=== PATIENT | male | born 1955 | race Caucasian/White ===

== ENCOUNTER 2017-01-05 19:29 | Inpatient (IN) | payer MEDICAID, OTHER ==
[2017-01-05 20:56] VITALS: BP 196/100; PULSE 102; RESP 17; TEMP 98.4
[2017-01-05] MEDS ORDERED: cloNIDine HCL 0.1 MG TAB PO ONE (21:00)
[2017-01-05] MEDS ORDERED: cloNIDine HCL 0.2 MG TAB PO ONE (21:00)
[2017-01-05] MEDS ORDERED: traZODone HCL 50 MG TAB PO SCH (21:00)
[2017-01-05] MEDS ORDERED: GABAPENTIN 300 MG CAP PO ONE (21:15)
[2017-01-06 06:31] VITALS: BP_SYST 150; BP_SYST 198; BP_DIAS 111; BP_DIAS 85; PULSE 131; PULSE 76; RESP 20; RESP 24; TEMP 98.2; O2SAT 95
[2017-01-06] MEDS ORDERED: cloNIDine HCL 0.2 MG TAB PO ONE ×2 (07:00→13:00)
[2017-01-06] MEDS ORDERED: GABAPENTIN 300 MG CAP PO ONE (09:00)
[2017-01-06] MEDS ORDERED: LORazepam 0.5 MG TAB PO PRN (11:15)
[2017-01-06] MEDS ORDERED: NICOTINE 21 MG/24 HR PATCH T-DERMAL SCH (11:15)
[2017-01-06] MEDS ORDERED: LORazepam 2 MG/ML VIAL IM PRN ×2 (11:15)
[2017-01-06] MEDS ORDERED: MAGNESIUM HYDROXIDE SUSP 30 ML CUP PO PRN (11:15)
[2017-01-06] MEDS ORDERED: ACETAMINOPHEN 325 MG TAB PO PRN (11:15)
[2017-01-06] MEDS ORDERED: ALUMINUM/MAGNESIUM/SIMETH 30 ML CUP PO PRN (11:15)
[2017-01-06] MEDS ORDERED: LORazepam 1 MG TAB PO PRN (11:15)
--- NOTE | 2017-01-06 11:27 | HHI.HP ---
Provisional Diagnosis Admission Date January 05, 2017 at 19:29 [place] I. Adjustment disorder with depressed mood, opiate dependence [place] II. Deferred [place] III. Chronic lower back pain, hypertension [place] IV. Poor family and social support [place] V. 50 Certification of Person's Competence To Provide Express and Informed Consent I have personally examined Matthew Fox , a person being served at [facility] on, January 06, 2017 11:10. Express and informed consent means consent voluntarily given in writing, by a competent person, after sufficient explanation and disclosure of the subject matter involved to enable the person to make a knowing and willful decision without any element of force, fraud, deceit, duress, or other form of constraint or coercion. This person is 18 years of age or older, is not now known to be incompetent to consent to treatment with a guardian advocate, and does not have a health care surrogate or proxy currently making medical treatment decisions. I have found this person to be one of the following: [X] Competent to provide express and informed consent, as defined above, for voluntary admission to this facility and is competent to provide express and informed consent for treatment. He/she has the consistent capacity to make well reasoned, willful, and knowing decisions concerning his or her medical or mental health treatment. The person fully and consistently understands the purpose of the admission for examination/placement and is fully capable of personally exercising all rights assured under [place] Incompetent to provide express and informed consent to voluntary admission, and this is incompetent to provide express and informed consent to treatment. The person must be transferred to involuntary status and a petition for a guardian advocate filed with the Circuit Court. [] Refusing to provide express and informed consent to voluntary admission but is competent to provide express and informed consent for treatment. The person must be discharged or transferred to involuntary status. Form shall be completed within 24 hours of a person's arrival at the receiving facility and filed in the clinical record of each person: 1. Admitted on a voluntary basis 2. Permitted to provide express and informed consent to his/her own treatment 3. Allowed to transfer from involuntary to voluntary status 4. Prior to permitting a person to consent to his or her own treatment after having been previously found incompetent to consent to treatment. History of Present Illness Capacity: Has Capacity HPI The patient is a 61-year-old man, homeless, single, supported by [facility], without any previous psychiatric history, no previous psychiatric hospitalizations, no previous suicidal attempts, medical history hypertension, and chronic lower back pain, who was transferred from [facility] under [place] act due to suicidal attempt by overdosing. Apparently patient was found unresponsive in his house after an overdose with opiates and Lyrica. On psychiatric evaluation today patient is calm, cooperative irritable. He says that he did not try to commit suicide. He states that yesterday after an argument with his landlord he became very upset and aggravated, went inside his room and took his usual medication for pain, but minutes later he is started to feel dizzy and he called the ambulance. When EMS nuclear engineering technician asked him if he took any medication he stated he to live And opiates "they might understood that I overdose, but I never did that, I love myself, I want to ". Patient says that he has been struggling with sadness due to his social/financial situation. However, he denies depressive symptoms, he denies anhedonia, he denies suicidal or homicidal ideation, he denies visual and auditory hallucinations. No paranoia, no delusions, no agitation, no aggressive behavior present. Patient is oriented 3. No confusion, no gross cognitive impairment observed. During the interview patient is mostly focused and medical problems, especially in medication for lower back pain. He is also very concerned about his uncontrolled blood pressure. He was reassured and explained that medical team was seen son to help in this aspect. Review of Systems Endocrine: DENIES: Heat/cold intolerance, Polydipsia, Polyuria, Polyphagia Eyes: DENIES: Blurred vision, Diplopia, Eye inflammation, Eye pain, Vision loss , Photosensitivity, Double Vision Ears, nose, mouth, throat: DENIES: Tinnitus, Hearing loss, Vertigo, Nasal discharge, Oral lesions, Throat pain, Hoarseness, Ear Pain, Running Nose, Epistaxis, Sinus Pain, Toothache, Odynophagia Respiratory: DENIES: Apneas, Cough, Snoring, Wheezing, Hemoptysis, Sputum production, Shortness of breath Cardiovascular: DENIES: Chest pain, Palpitations, Syncope, Dyspnea on Exertion , PND, Lower Extremity Edema, Orthopnea, Claudication Gastrointestinal: DENIES: Abdominal pain, Black stools, Bloody stools, Constipation, Diarrhea, Nausea, Vomiting, Difficulty Swallowing, Anorexia Genitourinary: DENIES: Sexual dysfunction, Urinary frequency, Urinary incontinence, Urgency, Hematuria, Dysuria, Nocturia, Penile Discharge, Testicular Pain, Testicular Swelling Musculoskeletal: COMPLAINS OF: Back pain Integumentary: DENIES: Abnormal pigmentation, Nail changes, Pruritus, Rash Hematologic/lymphatic: DENIES: Bruising, Lymphadenopathy Immunologic/allergic: DENIES: Eczema, Urticaria Psychiatric: DENIES: Anxiety, Confusion, Mood changes, Depression, Hallucinations, Agitation, Suicidal Ideation, Homicidal Ideation, Delusions Substance Abuse History Drugs/Alcohol past 12 months Patient denies the use of alcohol and illicit drugs. He reports full compliance with medication for pain OxyContin and Lyrica. Past Family Social History Coded Allergies: Nonsteroidal Anti-Inflammatory Agts (Verified Allergy, Unknown, 01/05/17) Toradol (Verified Allergy, Unknown, 01/05/17) Current Medications Medications (Trade) Dose Ordered Sig/Ivan Route Start Time Stop Time Status Last Admin (Desyrel) 150 mg HS PO 01/05/17 21:00 01/05/17 21:00 (Ativan) 1 mg Q6H PRN PO 01/06/17 11:15 UNV (Ativan Inj) 1 mg Q6H PRN IM 01/06/17 11:15 UNV (Ativan) 0.5 mg Q12H PRN PO 01/06/17 11:15 UNV (Ativan Inj) 0.5 mg Q12H PRN IM 01/06/17 11:15 UNV (Tylenol) 650 mg Q4H PRN PO 01/06/17 11:15 UNV (Milk Of Magnesia Liq) 30 ml DAILY PRN PO 01/06/17 11:15 UNV (Mag-Al Plus Susp Liq) 30 ml Q6H PRN PO 01/06/17 11:15 UNV (Habitrol 21 Mg Patch.24 Hr) 1 patch DAILY T-DERMAL 01/06/17 11:15 UNV Family History Patient denies family psychiatric history Social History Patient was born and raised in [place], he is homeless, he used to live in [place], his divorce, no kids, he support from [facility], his highest level of education is 12th grade Patient's Strengths (min. 2) Verbal communication Physical Exam On physical exam no EPS, no tremors, no withdrawal symptoms, no stiffness, no psychomotor retardation or agitation present Vital Signs Vital Signs Date Time Temp Pulse Resp B/P Pulse Ox O2 Delivery O2 Flow Rate FiO2 01/06/17 06:31 98.2 76 20 198/111 95 I/O 01/05/17 01/05/17 01/06/17 08:00 16:00 00:00 Intake Total 360 ml Balance 360 ml Lab Results Wbc, CMP, toxicology, ordered Mental Status Examination Appearance man, long hair, good hygiene, [facility], he is calm, cooperative, irritable at times Speech: Unremarkable Orientation: x3 Memory: Unremarkable Thought Process: Logical Thought Content: Unremarkable Hallucination Type: None Suicidal Ideation: No Previous Suicide Attempts: No Homicidal Ideation: No Previous Homicide Attempts: No Affect: Good Mood: Appropriate Motor Activity: Normal gait Assessment & Plan Problem List: (1) Adjustment disorder with depressed mood Assessment & Plan: The patient is a 61-year-old man, homeless, single , supported by [facility], without any previous psychiatric history, no previous psychiatric hospitalizations, no previous suicidal attempts, medical history hypertension, and chronic lower back pain, who was transferred from [facility] under [place] act due to suicidal attempt by overdosing. Apparently patient was found unresponsive in his house after an overdose with opiates and Lyrica. On psychiatric evaluation today patient denies suicidal intention in his recent overdose, he denies significant depressive symptoms, denies anxiety, denies perceptual disturbances, denies current suicidal and homicidal ideation, visual and auditory hallucinations. Patient seems to be future oriented, focused in his social situation, hopelessness, medical problems, especially lower back pain. Patient will be On psychiatric under observation of mood and behavior, and until collateral information is available and also a safe discharge could be coordinated. Will consult hospitalist for elevated blood pressure. Bp is . Will medicate with clonidine 0.2 mg stat to control be be. We ordered trazodone 200 mg to help with sleep at night and gabapentin 300 mg 3 times a day for pain. workers compensation claims supervisor intervention for psychosocial assessment, collateral information, to coordinate a safe discharge. Safety measure will be taken. Patient will participate in individual and group therapies. Patient will sign voluntary admission. I anticipate of the patient will be in the unit 24-48 hours. Extensive psycho education, support and motivation provided. ICD Code: F43.21 Assessment & Plan Estimated LOS: days Jovan Lehman MD January 06, 2017 11:27
[2017-01-06] MEDS ORDERED: oxyCODONE/ACETAMINOPHEN 10 MG/325 MG TAB PO PRN (12:45)
[2017-01-06] MEDS ORDERED: amLODIPine BESYLATE 5 MG TAB PO ONE (13:00)
[2017-01-06] MEDS ORDERED: LOSARTAN 50 MG TAB PO ONE (13:00)
[2017-01-06] MEDS ORDERED: GABAPENTIN 300 MG CAP PO SCH (13:00)
[2017-01-06 13:34] LABS: BLOOD, URINE NEG (NEG); GLUCOSE,URINE NEG (NEG); KETONE, URINE NEG (NEG); NITRITE,URINE NEG (NEG); PH, URINE 6.5 (5.0-8.5); SQUAMOUS EPITHELIAL CELL URINE <1 /hpf (0-5); URINE COLOR LIGHT-YELLOW (YELLW/STRAW)
[2017-01-06 13:39] LABS: COMMENT (UR) CULT NOT INDICATED; CULTURE IF INDICATED CULT NOT INDICATED
--- NOTE | 2017-01-06 14:20 | PD.CONS ---
HPI Service [facility] Hospitalists Consult Requested By Psychiatric service Reason for Consult Hypertensive management Primary Care Physician Unknown Diagnoses: History of Present Illness This is a 61-year-old male with past medical history of hypertension and chronic neck and back pain on Percocet who was admitted to the psychiatric unit as a transfer from [facility] under [place] act due to suicide attempt by overdosing. His blood pressure is currently 213/104 and hospitalist services have been consulted for medical management. Patient reports that yesterday after having an argument with his landlord he became very upset and aggravated in a short time later and dizziness, shaking and weakness. Patient reports he woke up a short while later and was unable to remember how to use his cell phone. He then began taking [id number] doses of Lyrica due to the fact that he forgot that he already taken the previous dose. He denies any suicide attempt. Patient is complaining of severe neck and back pain at this time. He also reports dysuria. He also reports episodes of diarrhea occurring after every meal that began when he was hospitalized over at [facility] and from his historical account it sounds as if he was tested for C. difficile and was found negative. He denies any fever, chills, nausea or vomiting. He normally takes clonidine 3 times a day but has not had a dose of that medication since he was admitted to this hospital. Review of Systems Except as stated in HPI: all other systems reviewed are Neg Past Family Social History Allergies: Coded Allergies: Nonsteroidal Anti-Inflammatory Agts (Verified Allergy, Unknown, 01/05/17) Toradol (Verified Allergy, Unknown, 01/05/17) Past Medical History Hypertension Left foot fracture 2014 Right ankle fracture 2013 Chronic neck and back pain Past Surgical History Patient denies any previous surgeries Reported Medications Gabapentin Losartan Percocet Clonidine Norvasc Active Ordered Medications Current Medications Medications (Trade) Dose Ordered Sig/Ivan Route Start Time Stop Time Status Last Admin (Ativan) 1 mg Q6H PRN PO 01/06/17 11:15 (Ativan Inj) 1 mg Q6H PRN IM 01/06/17 11:15 (Ativan) 0.5 mg Q12H PRN PO 01/06/17 11:15 (Ativan Inj) 0.5 mg Q12H PRN IM 01/06/17 11:15 (Tylenol) 650 mg Q4H PRN PO 01/06/17 11:15 (Milk Of Magnesia Liq) 30 ml DAILY PRN PO 01/06/17 11:15 (Mag-Al Plus Susp Liq) 30 ml Q6H PRN PO 01/06/17 11:15 (Habitrol 21 Mg Patch.24 Hr) 1 patch DAILY T-DERMAL 01/06/17 11:15 (Neurontin) 300 mg TID PO 01/06/17 13:00 01/06/17 12:46 (Catapres) 0.1 mg Q6HR PRN PO 01/06/17 18:00 (Norvasc) 5 mg DAILY PO 01/07/17 09:00 (Cozaar) 100 mg DAILY PO 01/07/17 09:00 (Percocet 10-325 Mg) 1 tab Q6H PRN PO 01/06/17 12:45 01/08/17 12:44 (Desyrel) 200 mg HS PO 01/06/17 21:00 Family History Mother, , lupus Father, age 72, suicide Social History Patient admits to tobacco use of a half pack per day. He denies any alcohol consumption or illicit drug use. He is with no kids. He is supported by [facility]. Physical Exam Vital Signs Vital Signs Date Time Temp Pulse Resp B/P Pulse Ox O2 Delivery O2 Flow Rate FiO2 01/06/17 06:31 98.2 76 20 198/111 95 01/05/17 20:56 98.4 102 17 196/100 Physical Exam GENERAL: This is a well-nourished, well-developed patient, in no apparent distress. Awake and alert. SKIN: No rashes, ecchymoses or lesions. Cool and dry. HEAD: Atraumatic. Normocephalic. EYES: Pupils equal round and reactive. Extraocular motions intact. No scleral icterus. No injection or drainage. ENT: Nose without bleeding, purulent drainage or septal hematoma. NECK: Trachea midline. No lymphadenopathy. Supple, nontender, no meningeal signs. CARDIOVASCULAR: Regular rate and rhythm without murmurs, gallops, or rubs. RESPIRATORY: Clear to auscultation. Breath sounds equal bilaterally. No wheezes , rales, or rhonchi. GASTROINTESTINAL: Abdomen soft, non-tender, nondistended. No hepato-splenomegaly , or palpable masses. No guarding. MUSCULOSKELETAL: Extremities without clubbing, cyanosis, or edema. No joint tenderness, effusion, or edema noted. No calf tenderness. NEUROLOGICAL: Awake and alert. Able to move all extremities. Motor and sensory grossly within normal limits. Five out of 5 muscle strength in all muscle groups. Normal speech. Laboratory Laboratory Tests Test 01/06/17 13:00 Urine Color LIGHT-YELLOW Urine Turbidity CLEAR Urine pH 6.5 Urine Specific [place] 1.008 Urine Protein NEG Urine Glucose (UA) NEG Urine Ketones NEG Urine Occult Blood NEG Urine Nitrite NEG Urine Bilirubin NEG Urine Urobilinogen LESS THAN 2.0 Urine Leukocyte Esterase NEG Urine WBC LESS THAN 1 Urine Squamous Epithelial <1 Cells Microscopic Urinalysis Comment CULT NOT INDICATED Assessment and Plan Assessment and Plan 61-year-old male with past medical history of hypertension and chronic neck and back pain on Percocet who was admitted to the psychiatric unit as a transfer from [facility] under [place] act due to suicide attempt by overdosing. His blood pressure is currently 213/104 and hospitalist services have been consulted for medical management. //Suicide attempt - Management per psychiatric team //Hypertensive urgency - Clonidine 0.2 mg now - Clonidine 0.1 mg every 6 hours when necessary with parameters - Resume home Norvasc and losartan - Monitor BP //Dysuria - Obtain urinalysis with reflex //Diarrhea - Possibly due to opiate withdrawal - C. difficile studies ordered - Encourage fluid intake - Monitor //Chronic neck and back pain - Percocet 10/325mg one by mouth every 6 when necessary pain 48 hours //DVT prophylaxis - Encourage ambulation Written by Sonali Tony PA-C acting as scribe for Dr. Chamorro on 01/06/17 at 14 :11. This note was transcribed by scribe Sonali Tony PA-C. I, Dr. Baldomero Chamorro personally performed the history, physical exam, and medical decision making; and confirmed the accuracy of the information in the transcribed note. Authenticated by Dr. Baldomero Chamorro on 01/06/17 at 19:56. Discussed Condition With Dr. Lehman, patient and nursing staff Sonali Tony January 06, 2017 14:20 Mo Chamorro DO January 06, 2017 19:56
[2017-01-06] MEDS ORDERED: cloNIDine HCL 0.1 MG TAB PO PRN (18:00)
[2017-01-06] MEDS ORDERED: traZODone HCL 100 MG TAB PO SCH ×2 (21:00)
[2017-01-07] MEDS ORDERED: LOSARTAN 50 MG TAB PO SCH (09:00)
[2017-01-07] MEDS ORDERED: amLODIPine BESYLATE 5 MG TAB PO SCH (09:00)
== END 2017-01-06 17:34 | disposition still patient (30) | DRG 881 ==
LOC: H4EA 19:29
PROVIDERS: ADMIT Psychiatry & Neurology Psychiatry; ATTEND Psychiatry & Neurology Psychiatry
DX: F43.21 Adjustment disorder with depressed mood (principal); F11.20 Opioid dependence, uncomplicated; I10 Essential (primary) hypertension; G89.29 Other chronic pain; M54.5 Low back pain; Z59.0 Homelessness; Z91.5 Personal history of self-harm; F17.210 Nicotine dependence, cigarettes, uncomplicated; I16.0 Hypertensive urgency; R19.7 Diarrhea, unspecified
CPT/HCPCS: 81001

== ENCOUNTER 2017-01-06 16:19 | Observation (INO) | payer MEDICAID, OTHER ==
[~2017-01-06] VITALS: Ht 182.9 cm; Wt 83.6 kg
[2017-01-06 18:15] VITALS: BP 184/108; PULSE 81; RESP 22; TEMP 98.6; O2SAT 96
--- NOTE | 2017-01-06 18:18 | HHI.HP ---
[facility] Admission Diagnosis Accelerated hypertension Diagnoses: Chief Complaint: Accelerated hypertension Neck and back pain Dysuria Travel History International Travel<30 Days: No Contact w/Intl Traveler <30 Da: No Traveled to Known Affected Are: No History of Present Illness his is a 61-year-old male with past medical history of hypertension and chronic neck and back pain on Percocet who was admitted to the psychiatric unit as a transfer from [facility] under [place] act due to suicide attempt by overdosing. Patient was seen as a consultation for extremely elevated blood pressure of 213/104 while under the psychiatric service. Patient was subsequently discharged from psychiatric service and will now be admitted under hospitalist service for observation of accelerated hypertension. Patient reports that yesterday after having an argument with his landlord he became very upset and aggravated in a short time later and dizziness, shaking and weakness. Patient reports he woke up a short while later and was unable to remember how to use his cell phone. He then began taking [id number] doses of Lyrica due to the fact that he forgot that he already taken the previous dose. He denies any suicide attempt. Patient is complaining of severe neck and back pain at this time. He also reports dysuria. He also reports episodes of diarrhea occurring after every meal that began when he was hospitalized over at [facility] and from his historical account it sounds as if he was tested for C. difficile and was found negative. He denies any fever, chills, nausea or vomiting. He normally takes clonidine 3 times a day but has not had a dose of that medication since he was admitted to this hospital. Review of Systems Except as stated in HPI: all other systems reviewed are Neg Past Family Social History Past Medical History Hypertension Left foot fracture 2014 Right ankle fracture 2013 Chronic neck and back pain Past Surgical History Patient denies any previous surgeries Reported Medications Gabapentin Losartan Percocet Clonidine Norvasc Allergies: Coded Allergies: Nonsteroidal Anti-Inflammatory Agts (Verified Allergy, Unknown, 01/05/17) Toradol (Verified Allergy, Unknown, 01/05/17) Family History Mother, , lupus Father, age 72, suicide Social History Patient admits to tobacco use of a half pack per day. He denies any alcohol consumption or illicit drug use. He is with no kids. He is supported by [facility]. Physical Exam Physical Exam GENERAL: This is a well-nourished, well-developed patient, in no apparent distress. Awake and alert. SKIN: No rashes, ecchymoses or lesions. Cool and dry. HEAD: Atraumatic. Normocephalic. No temporal or scalp tenderness. EYES: Pupils equal round and reactive. Extraocular motions intact. No scleral icterus. No injection or drainage. ENT: Nose without bleeding, purulent drainage or septal hematoma. Throat without erythema, tonsillar hypertrophy or exudate. Uvula midline. Airway patent. NECK: Trachea midline. No JVD or lymphadenopathy. Supple, nontender, no meningeal signs. CARDIOVASCULAR: Regular rate and rhythm without murmurs, gallops, or rubs. RESPIRATORY: Clear to auscultation. Breath sounds equal bilaterally. No wheezes , rales, or rhonchi. GASTROINTESTINAL: Abdomen soft, non-tender, nondistended. No hepato-splenomegaly , or palpable masses. No guarding. MUSCULOSKELETAL: Extremities without clubbing, cyanosis, or edema. No joint tenderness, effusion, or edema noted. No calf tenderness. NEUROLOGICAL: Awake and alert. Able to move all extremities. Motor and sensory grossly within normal limits. Normal speech. Assessment and Plan Assessment and Plan 61-year-old male with past medical history of hypertension and chronic neck and back pain on Percocet who was admitted to the psychiatric unit as a transfer from [facility] under [place] act due to suicide attempt by overdosing. Patient was subsequently discharged from psychiatric service and will be admitted under hospitalist service for observation of accelerated hypertension. //Accelerated hypertension - Clonidine 0.1 mg every 6 hours when necessary with parameters - Resume home Norvasc, Clonidine and losartan - Monitor BP //Dysuria - UA unremarkable - Monitor //Diarrhea - Possibly due to opiate withdrawal - C. difficile studies ordered - Encourage fluid intake - Monitor //Chronic neck and back pain - Percocet 10/325mg one by mouth every 6 when necessary pain 48 hours //DVT prophylaxis - Encourage ambulation - SCD/JOHNY hose Written by Sonali Tony PA-C acting as scribe for Dr. Chamorro on 01/06/17 at 18 :17. This note was transcribed by mag Tony PA-C. I, Dr. Baldomero Chamorro personally performed the history, physical exam, and medical decision making; and confirmed the accuracy of the information in the transcribed note. Authenticated by Dr. Baldomero Chamorro on 01/08/17 at 00:07. Sonali Tony January 06, 2017 18:18 Mo Chamorro DO January 08, 2017 00:08
[2017-01-06] MEDS ORDERED: hydrALAZINE HCL 25 MG TAB PO ONE (19:00)
[2017-01-06] MEDS ORDERED: SODIUM CHLORIDE 0.9% FLUSH 10 ML FLUSH IV FLUSH PRN (19:45)
[2017-01-06] MEDS ORDERED: ACETAMINOPHEN 325 MG TAB PO PRN (19:45)
[2017-01-06] MEDS ORDERED: ONDANSETRON HCL 4 MG/2 ML VIAL IVP PRN (19:45)
[2017-01-06] MEDS ORDERED: NALOXONE HCL 0.4 MG/ML AMP IV PRN (19:45)
[2017-01-06] MEDS ORDERED: MAGNESIUM HYDROXIDE SUSP 30 ML CUP PO PRN (19:45)
[2017-01-06] MEDS: SODIUM CHLORIDE 0.9% FLUSH 10 ML FLUSH IV FLUSH SCH (21:00)
[2017-01-06 21:34] VITALS: BP 188/102; PULSE 80
[2017-01-06] MEDS: oxyCODONE/ACETAMINOPHEN 7.5 MG/325 MG TAB PO PRN (21:42)
[2017-01-06] MEDS ORDERED: cloNIDine HCL 0.1 MG TAB PO SCH (22:00)
[2017-01-06 22:52] VITALS: BP 168/100; PULSE 73
[2017-01-07] VITALS (11 sets, daily range): BP systolic 142–207; BP diastolic 64–110; PULSE 64–85; RESP 16–18; TEMP 97.3–98.9; O2SAT 87–96
[2017-01-07] MEDS ORDERED: traZODone HCL 50 MG TAB PO ONE (00:15)
[2017-01-07] MEDS ORDERED: cloNIDine HCL 0.1 MG TAB PO ONE (00:30)
[2017-01-07] MEDS: oxyCODONE/ACETAMINOPHEN 7.5 MG/325 MG TAB PO PRN ×4 (03:52→23:53)
[2017-01-07] MEDS: cloNIDine HCL 0.2 MG TAB PO SCH ×3 (05:56→20:36)
[2017-01-07] MEDS: LOSARTAN 50 MG TAB PO SCH (08:16)
[2017-01-07 08:53] LABS: AUTOMATED NEUTROPHIL # 7.7 TH/MM3 (1.8-7.7); BASOPHIL # 0.1 TH/MM3 (0-0.2); BASOPHIL % 0.8 % (0.0-2.0); EOSINOPHIL # 0.4 TH/MM3 (0-0.4); EOSINOPHIL % 3.3 % (0.0-4.0); HEMATOCRIT 39.5 % (39.0-51.0); HEMO FLAGS DIFF FINAL; LYMPH % 14.7 % (9.0-44.0); LYMPHOCYTE # 1.6 TH/MM3 (1.0-4.8); MEAN CELL VOLUME 88.5 FL (80.0-100.0); MEAN CORPUSCULAR HEMOGLOBIN 30.6 PG (27.0-34.0); MEAN CORPUSCULAR HGB CONC 34.6 % (32.0-36.0); MONO % 10.2 % (0.0-8.0); PLATELET COUNT 361 TH/MM3 (150-450); RED BLOOD COUNT 4.47 MIL/MM3 (4.50-5.90); RED CELL DISTRIBUTION WIDTH 14.3 % (11.6-17.2); WHITE BLOOD COUNT 10.9 TH/MM3 (4.0-11.0)
[2017-01-07] MEDS ORDERED: amLODIPine BESYLATE 5 MG TAB PO SCH (09:00)
[2017-01-07 09:15] LABS: BICARBONATE 31.9 MEQ/L (21.0-32.0); POTASSIUM 3.4 MEQ/L (3.5-5.1)
[2017-01-07] MEDS ORDERED: PNEUMOCOCCAL POLYVALENT INJ 25 MCG/0.5 ML SYR IM ONE (10:00)
[2017-01-07] MEDS: SODIUM CHLORIDE 0.9% FLUSH 10 ML FLUSH IV FLUSH SCH ×2 (13:15→20:36)
--- NOTE | 2017-01-07 15:03 | HHI.PR ---
Subjective Remarks Follow-up of accelerated hypertension. Patient is doing well. Complains of some headache. He could not sleep much last night. No chest pain, fever, chills. Objective Vitals Vital Signs Date Time Temp Pulse Resp B/P Pulse Ox O2 Delivery O2 Flow Rate FiO2 01/07/17 12:00 98.1 79 18 145/87 87 01/07/17 08:56 71 01/07/17 08:00 85 01/07/17 08:00 98.3 74 18 160/96 96 Automatic Cuff 01/07/17 08:00 96 Room Air 01/07/17 04:00 98.0 68 16 171/98 95 01/07/17 02:01 170/88 01/07/17 00:55 80 182/104 01/07/17 00:40 78 01/07/17 00:00 98.6 64 16 179/90 94 01/06/17 22:52 73 168/100 01/06/17 21:34 80 188/102 01/06/17 20:00 Room Air 01/06/17 18:15 98.6 81 22 184/108 96 I/O 01/06/17 01/06/17 01/06/17 01/07/17 01/07/17 01/07/17 06:59 14:59 22:59 06:59 14:59 22:59 Intake Total 720 ml 1180 ml Output Total 200 ml Balance 520 ml 1180 ml Intake Oral 720 ml 1180 ml Output Urine Total 200 ml # Voids 2 4 # Bowel Movements 0 4 Result Diagram: 01/07/17 0743 01/07/17 0743 Objective Remarks GENERAL: AOX3, NAD. SKIN: Warm and dry. HEAD: Normocephalic. EYES: No scleral icterus. No injection or drainage. NECK: Supple, trachea midline. No JVD or lymphadenopathy. CARDIOVASCULAR: Regular rate and rhythm without murmurs, gallops, or rubs. RESPIRATORY: Breath sounds equal bilaterally. No accessory muscle use. GASTROINTESTINAL: Abdomen soft, non-tender, nondistended. MUSCULOSKELETAL: No cyanosis, or edema. BACK: Nontender without obvious deformity. No CVA tenderness. Procedures None A/P Problem List: (1) Accelerated hypertension ICD Code: I10 Status: Acute (2) Chronic back pain ICD Code: M54.9 Status: Acute (3) Adjustment disorder with depressed mood ICD Code: F43.21 Status: Acute Assessment and Plan 61-year-old male with past medical history of hypertension and chronic neck and back pain on Percocet who was admitted to the psychiatric unit as a transfer from [facility] under [place] act due to suicide attempt by overdosing. Patient was subsequently discharged from psychiatric service and will be admitted under hospitalist service for observation of accelerated hypertension. Accelerated hypertension Continue home medications amlodipine 10 mg, losartan 100 mg, metoprolol succinate 50 mg all daily. Patient takes clonidine 0.3 mg by mouth 3 times a day. We'll continue 0.2 mg clonidine by mouth 3 times a day for now. Hydralazine 10 mg IV every 4 hours when necessary Chronic back pain - continue Percocet 7.5 mg by mouth every 6 hours when necessary Insomnia - trazodone 100 mg daily at bedtime Adjustment disorder with depressed mood Patient was evaluated by psychiatry service. Patient was discharged from psychiatric service on 01/06/2017. Full code. SCDs. Discharge: Patient is homeless. Anticipate discharge on 01/10/2017. Mo Chamorro DO January 07, 2017 3:03 pm
[2017-01-07 19:22] LABS: BLOOD, URINE NEG (NEG); GLUCOSE,URINE NEG (NEG); KETONE, URINE NEG (NEG); NITRITE,URINE NEG (NEG); URINE COLOR LIGHT-YELLOW (YELLW/STRAW)
[2017-01-07 19:23] LABS: COMMENT (UR) CULT NOT INDICATED; CULTURE IF INDICATED CULT NOT INDICATED
[2017-01-07 20:29] LABS: C. DIFF EPI 027 PRESUMPTIVE NEGATIVE (NEGATIVE); C. DIFF TOXIN PCR NEGATIVE (NEGATIVE)
[2017-01-08] VITALS (9 sets, daily range): BP systolic 130–221; BP diastolic 70–107; PULSE 57–75; RESP 16–20; TEMP 97.8–98.5; O2SAT 96–98
[2017-01-08] MEDS ORDERED: METO50TA11 PO (00:34)
[2017-01-08] MEDS ORDERED: BENT20TA PO (00:35)
[2017-01-08] MEDS ORDERED: BACL20TA PO (00:35)
[2017-01-08] MEDS ORDERED: IBUP800T23 PO (00:35)
[2017-01-08] MEDS ORDERED: LOSA100T PO (00:35)
[2017-01-08] MEDS ORDERED: LYRI75CA PO (00:35)
[2017-01-08] MEDS ORDERED: MOME17I EACH NARE (00:35)
[2017-01-08] MEDS ORDERED: OXYC1TAB36 PO (00:35)
[2017-01-08] MEDS ORDERED: ZYRT10CA PO (00:35)
[2017-01-08] MEDS ORDERED: AMLO10TA2 PO (00:35)
[2017-01-08] MEDS ORDERED: CLON0.3T PO (00:35)
[2017-01-08] MEDS: oxyCODONE/ACETAMINOPHEN 7.5 MG/325 MG TAB PO PRN ×4 (05:52→23:45)
[2017-01-08] MEDS ORDERED: BACLOFEN 20 MG TAB PO SCH (06:00)
[2017-01-08] MEDS: FLUTICASONE PROPIONATE 50 MCG/ACT 16 GM NASAL SPRAY EACH NARE SCH (07:38)
[2017-01-08] MEDS: METOPROLOL SUCCINATE 50 MG EXTENDED RELEASE TAB PO SCH (07:38)
[2017-01-08] MEDS: LOSARTAN 50 MG TAB PO SCH (07:38)
[2017-01-08] MEDS: SODIUM CHLORIDE 0.9% FLUSH 10 ML FLUSH IV FLUSH SCH ×2 (07:38→21:00)
[2017-01-08] MEDS: cloNIDine HCL 0.2 MG TAB PO SCH ×3 (08:59→18:09)
[2017-01-08] MEDS ORDERED: cloNIDine HCL 0.3 MG TAB PO SCH (09:00)
--- NOTE | 2017-01-08 10:07 | HHI.PR ---
Subjective Remarks Follow-up for accelerated hypertension. Patient denies any acute concerns. He is unable to sleep well. No chest pain, shortness of breath, fever or chills. Objective Vitals Vital Signs Date Time Temp Pulse Resp B/P Pulse Ox O2 Delivery O2 Flow Rate FiO2 01/08/17 08:00 98.1 59 20 221/107 98 01/08/17 04:00 98.0 66 18 177/98 97 01/08/17 00:23 156/90 01/08/17 00:00 98.1 68 16 154/103 97 01/07/17 21:45 152/88 01/07/17 20:36 16 01/07/17 20:32 98.3 75 16 207/110 96 01/07/17 16:00 98.9 81 18 146/95 96 01/07/17 12:00 98.1 79 18 145/87 87 I/O 01/07/17 01/07/17 01/07/17 01/08/17 01/08/17 01/08/17 07:00 15:00 23:00 07:00 15:00 23:00 Intake Total 360 ml 1180 ml 0 ml 0 ml Balance 360 ml 1180 ml 0 ml 0 ml Intake Oral 360 ml 1180 ml IV Total 0 ml 0 ml # Voids 2 4 4 # Bowel Movements 0 4 1 Result Diagram: 01/07/17 0743 01/07/17 0743 Objective Remarks GENERAL: Alert, oriented 3, NAD. SKIN: Warm and dry. HEAD: Normocephalic. EYES: No scleral icterus. No injection or drainage. NECK: Supple, trachea midline. No JVD or lymphadenopathy. CARDIOVASCULAR: Regular rate and rhythm without murmurs, gallops, or rubs. RESPIRATORY: Breath sounds equal bilaterally. No accessory muscle use. GASTROINTESTINAL: Abdomen soft, non-tender, nondistended. MUSCULOSKELETAL: No cyanosis, or edema. BACK: Nontender without obvious deformity. No CVA tenderness. Procedures None A/P Assessment and Plan 61-year-old male with past medical history of hypertension and chronic neck and back pain on Percocet who was admitted to the psychiatric unit as a transfer from [facility] under [place]rera act due to suicide attempt by overdosing. Patient was subsequently discharged from psychiatric service and will be admitted under hospitalist service for observation of accelerated hypertension. Accelerated hypertension Continue home medications amlodipine 10 mg, losartan 100 mg, metoprolol succinate 50 mg all daily. Patient takes clonidine 0.3 mg by mouth 3 times a day. We'll continue 0.2 mg clonidine by mouth 3 times a day for now. If BP remains high, we will increase to Clonidine 0.3mg TID. Add Hydralazine 10 mg IV every 4 hours when necessary Chronic back pain - continue Percocet 7.5 mg by mouth every 6 hours when necessary Insomnia - trazodone 100 mg daily at bedtime Adjustment disorder with depressed mood Patient was evaluated by psychiatry service. Patient was discharged from psychiatric service on 01/06/2017. Full code. SCDs. Discharge: Patient is homeless. Anticipate discharge on 01/10/2017. Mo Chamorro DO January 08, 2017 10:07 am
[2017-01-08] MEDS ORDERED: hydrALAZINE HCL 20 MG/ML VIAL IV PUSH PRN (11:00)
[2017-01-08] MEDS ORDERED: CETIRIZINE HCL 10 MG TAB PO ONE (14:15)
[2017-01-08] MEDS: BACLOFEN 10 MG TAB PO SCH ×2 (16:29→21:17)
[2017-01-08] MEDS ORDERED: traZODone HCL 100 MG TAB PO SCH (21:00)
[2017-01-09] VITALS: BP 114/63; PULSE 59; RESP 18; TEMP 97.8; O2SAT 95
[2017-01-09 04:00] VITALS: BP 160/94; PULSE 57; RESP 18; TEMP 97.8; O2SAT 97
[2017-01-09] MEDS: BACLOFEN 10 MG TAB PO SCH ×2 (05:13→13:33)
[2017-01-09] MEDS: oxyCODONE/ACETAMINOPHEN 7.5 MG/325 MG TAB PO PRN ×2 (05:13→11:50)
[2017-01-09 08:00] VITALS: BP 140/87; PULSE 58; RESP 16; TEMP 97.7; O2SAT 97
[2017-01-09] MEDS: METOPROLOL SUCCINATE 50 MG EXTENDED RELEASE TAB PO SCH (09:00)
[2017-01-09] MEDS: SODIUM CHLORIDE 0.9% FLUSH 10 ML FLUSH IV FLUSH SCH (09:00)
[2017-01-09] MEDS ORDERED: CETIRIZINE HCL 10 MG TAB PO SCH (09:00)
[2017-01-09] MEDS: cloNIDine HCL 0.2 MG TAB PO SCH ×2 (09:16→11:50)
[2017-01-09] MEDS: FLUTICASONE PROPIONATE 50 MCG/ACT 16 GM NASAL SPRAY EACH NARE SCH (09:16)
[2017-01-09 09:33] VITALS: PULSE 55
--- NOTE | 2017-01-09 10:43 | HHI.PR ---
Objective Vitals Vital Signs Date Time Temp Pulse Resp B/P Pulse Ox O2 Delivery O2 Flow Rate FiO2 01/09/17 09:33 55 01/09/17 08:00 97.7 58 16 140/87 97 01/09/17 04:00 97.8 57 18 160/94 97 01/09/17 00:00 97.8 59 18 114/63 95 01/08/17 20:45 Room Air 01/08/17 20:06 66 01/08/17 20:00 98.4 57 18 130/74 96 01/08/17 16:00 97.8 66 20 141/70 97 01/08/17 14:31 Room Air 01/08/17 12:00 98.5 75 20 172/101 97 I/O 01/08/17 01/08/17 01/08/17 01/09/17 01/09/17 01/09/17 07:00 15:00 23:00 07:00 15:00 23:00 Intake Total 480 ml 480 ml 100 ml Balance 480 ml 480 ml 100 ml Intake Oral 480 ml 480 ml 100 ml IV Total 0 ml # Voids 4 4 2 2 # Bowel Movements 1 0 0 0 Result Diagram: 01/07/17 0743 01/07/17 0743 Objective Remarks GENERAL: Alert, oriented 3, NAD. SKIN: Warm and dry. HEAD: Normocephalic. EYES: No scleral icterus. No injection or drainage. NECK: Supple, trachea midline. No JVD or lymphadenopathy. CARDIOVASCULAR: Regular rate and rhythm without murmurs, gallops, or rubs. RESPIRATORY: Breath sounds equal bilaterally. No accessory muscle use. GASTROINTESTINAL: Abdomen soft, non-tender, nondistended. MUSCULOSKELETAL: No cyanosis, or edema. BACK: Nontender without obvious deformity. No CVA tenderness. Procedures None A/P Problem List: (1) Accelerated hypertension ICD Code: I10 Status: Acute (2) Chronic back pain ICD Code: M54.9 Status: Acute (3) Adjustment disorder with depressed mood ICD Code: F43.21 Status: Acute Assessment and Plan 61-year-old male with past medical history of hypertension and chronic neck and back pain on Percocet who was admitted to the psychiatric unit as a transfer from [facility] under [place] act due to suicide attempt by overdosing. Patient was subsequently discharged from psychiatric service and will be admitted under hospitalist service for observation of accelerated hypertension. Accelerated hypertension Continue home medications amlodipine 10 mg, losartan 100 mg, metoprolol succinate 50 mg all daily. Patient takes clonidine 0.3 mg by mouth 3 times a day. We'll continue 0.2 mg clonidine by mouth 3 times a day for now. If BP remains high, we will increase to Clonidine 0.3mg TID. Add Hydralazine 10 mg IV every 4 hours when necessary Chronic back pain - continue Percocet 7.5 mg by mouth every 6 hours when necessary Insomnia - trazodone 100 mg daily at bedtime Adjustment disorder with depressed mood Patient was evaluated by psychiatry service. Patient was discharged from psychiatric service on 01/06/2017. Full code. SCDs. Discharge: Patient is homeless. Anticipate discharge on 01/10/2017. Mo Chamorro DO January 09, 2017 10:43 am
[2017-01-09] MEDS ORDERED: DILTIAZEM HCL 25 MG/5 ML VIAL IV ONE (11:00)
[2017-01-09 12:00] VITALS: BP 127/73; PULSE 66; RESP 16; TEMP 98.7; O2SAT 96
--- NOTE | 2017-01-09 13:23 | PD.CONS ---
Provisional Diagnosis Admission Date January 06, 2017 at 18:40 [place] I. 1. Adjustment disorder with depressed mood [place] II. Deferred History of Present Illness Service Psychiatry Consult Requested By Dr. Chamorro Reason for Consult [id number] concerned about patient Primary Care Physician Unknown HPI Mr. Fox is a 61-year-old male with no real past psychiatric history who is presently admitted to the medical floor for the management of hypertensive urgency. The patient was admitted in transfer from outside hospital to the medical psychiatric unit on 01/06 following an overdose. He was under a Cabrera act, but it appears that Dr. Lehman judged to that the patient was capacitated sign into the hospital voluntarily. Reviewing our electronic medical record, I see no prior psychiatric contact within our system. Patient seen and examined. Chart reviewed. Case discussed with Dr. Chamorro. Apparently, patient's [id number] is quite concerned that the patient remains at risk for ongoing self injury. Reviewing the notes from the psychiatric admission, I do see that the patient's sister called in and expressed concerns about his substance use. For me today, the patient denies making a suicidal overdose. He can provide no explanation for how he came to be altered and brought into outside hospital in the first place. He denies any suicidal or homicidal ideation at this time. He does seem to hold a great distaste for his landlord and says that she frequently belittles him. He says that he feels depressed" around her" but not elsewhere. No real depressive or hypomanic/ manic symptoms otherwise. He denies audiovisual hallucinations and I can elicit no delusional beliefs. The remainder of the psychiatric ROS is negative. Past psychiatric history: Patient denies any history of psychiatric diagnoses, psychiatric admissions or suicide attempts. Family history: Patient denies any family history of mental illness. Chemical dependency history: Patient endorses a history of cocaine addiction but denies any current substance use. He says that he can't abuse cocaine "because it makes my blood pressure go too high. Social history: The patient reports that he lives with a landlord. He has a 12 grade education. He is on disability. He is and has 3 grown children. He denies any or legal history. He denies any access to guns or firearms. Review of Systems Except as stated in HPI: all other systems reviewed are Neg Past Family Social History Coded Allergies: Nonsteroidal Anti-Inflammatory Agts (Verified Allergy, Unknown, 01/05/17) Toradol (Verified Allergy, Unknown, 01/05/17) Past Medical History See electronic medical record Reported Medications Mometasone Nasal [place] (Nasonex Nasal [place])50 Mcg/Act Naspr2 [place] EACH NARE DAILY #1 BOTTLE Ref 0 01/08/17 Oxycodone-Acetaminophen 10-325 mg Tab1 Tab PO Q8HR Ref 0 01/08/17 Cetirizine (Zyrtec Allergy)10 Mg Cap10 Mg PO DAILY Ref 0 01/08/17 Ibuprofen 800 Mg [id number] Mg PO Q8H PRN (Pain/Inflammation) #60 TAB Ref 0 01/08/17 Dicyclomine (Bentyl)20 Mg Tab20 Mg PO QID Ref 0 01/08/17 Baclofen 20 Mg Tab20 Mg PO Q6HR Ref 0 01/08/17 Pregabalin (Lyrica)75 Mg Cap75 Mg PO BID #60 CAP Ref 0 01/08/17 Losartan 100 Mg [id number] Mg PO DAILY #30 TAB Ref 0 01/08/17 Amlodipine 10 Mg Tab10 Mg PO DAILY #30 TAB Ref 0 01/08/17 Clonidine 0.3 Mg Tab0.3 Mg PO TID #60 TAB Ref 0 01/08/17 Metoprolol Succinate ER 24 HR 50 Mg Tab50 Mg PO DAILY #30 TAB Ref 0 01/08/17 Current Medications Medications (Trade) Dose Ordered Sig/Ivan Route Start Time Stop Time Status Last Admin (NS Flush) 2 ml UNSCH PRN IV FLUSH 01/06/17 19:45 (NS Flush) 2 ml BID IV FLUSH 01/06/17 21:00 01/09/17 09:00 (Tylenol) 650 mg Q4H PRN PO 01/06/17 19:45 (Zofran Inj) 4 mg Q6H PRN IVP 01/06/17 19:45 (Milk Of Magnesia Liq) 30 ml Q12H PRN PO 01/06/17 19:45 (Narcan Inj) 0.4 mg UNSCH PRN IV 01/06/17 19:45 (Percocet 7.5-325 Mg) 1 tab Q6H PRN PO 01/06/17 19:45 01/09/17 11:50 (Norvasc) 10 mg DAILY PO 01/08/17 09:00 01/09/17 09:16 (Toprol Xl) 50 mg DAILY PO 01/08/17 09:00 01/08/17 07:38 (Flonase Kelvin Spr) 2 spray DAILY EACH NARE 01/08/17 09:00 01/09/17 09:16 (Catapres) 0.2 mg TID PO 01/08/17 09:00 01/09/17 11:50 (Apresoline Inj) 10 mg Q4H PRN IV PUSH 01/08/17 11:00 (Cozaar) 100 mg DAILY PO 01/09/17 17:00 (Desyrel) 100 mg HS PO 01/08/17 21:00 01/08/17 21:00 (Lioresal) 10 mg Q8HR PO 01/08/17 14:00 01/09/17 05:13 (ZyrTEC) 10 mg DAILY PO 01/09/17 09:00 01/09/17 09:16 Family History See above Social History See above Patient's Strengths (min. 2) In a monitored setting. Verbally fluent. Physical Exam Physical exam completed by primary team. On my examination today, patient appears to be in no acute physical distress. No motor abnormalities noted. Labs and vital signs reviewed: Vital Signs Vital Signs Date Time Temp Pulse Resp B/P Pulse Ox O2 Delivery O2 Flow Rate FiO2 01/09/17 12:00 98.7 66 16 127/73 96 01/08/17 20:45 Room Air I/O 01/08/17 01/08/17 01/09/17 08:00 16:00 00:00 Intake Total 0 ml 480 ml 480 ml Balance 0 ml 480 ml 480 ml Lab Results Item Value Date Time White Blood Count 10.9 TH/MM3 01/07/17 0743 Hemoglobin 13.7 GM/DL 01/07/17 0743 Platelet Count 361 TH/MM3 01/07/17 0743 Sodium Level 137 MEQ/L 01/07/17 0743 Potassium Level 3.4 MEQ/L L 01/07/17 0743 Chloride Level 98 MEQ/L 01/07/17 0743 Carbon Dioxide Level 31.9 MEQ/L 01/07/17 0743 Blood Urea Nitrogen 14 MG/DL 01/07/17 0743 Creatinine 1.11 MG/DL 01/07/17 0743 Mental Status Examination Patient is in hospital gown. He is fairly well groomed. He is awake and alert and oriented 3. No abnormal motor movements noted. Speech is within normal limits for rate, tone and volume. Mood is reportedly fair and affect is somewhat restricted and dysphoric. Thought processes linear. No loosening of associations. No evident delusions. Denies audiovisual hallucinations. Denies suicidal or homicidal ideation. Insight and judgment are unclear. Assessment & Plan Problem List: (1) Adjustment disorder with depressed mood ICD Code: F43.21 Assessment & Plan This is a 61-year-old male with psychiatric history as detailed above who is presently admitted to the medical floor for hypertension, having been transferred from the medical psychiatric unit. Family is apparently concerned about patient's ongoing risk for self injury, although this may primarily be related to substance use issues. Patient is now medically cleared, per Dr. Chamorro. Plan will be to transfer back to inpatient psychiatry today. Thank you very much for this consultation. Case discussed with Dr. Chamorro. Chase Wills MD January 09, 2017 13:23
[2017-01-09] MEDS ORDERED: BACL10TA PO (13:25)
[2017-01-09] MEDS ORDERED: CLON.2 PO (13:25)
[2017-01-09] MEDS ORDERED: TRAZ50TA12 PO (13:25)
--- NOTE | 2017-01-09 13:25 | HHI.DS ---
Discharge Summary Admission Date January 06, 2017 at 6:40 pm Discharge Date: January 09, 2017 Admitting Diagnosis Accelerated hypertension (1) Accelerated hypertension ICD Code: I10 Diagnosis: Principal (2) Chronic back pain ICD Code: M54.9 (3) Adjustment disorder with depressed mood ICD Code: F43.21 Diagnosis: Principal Procedures None Brief History - From Admission his is a 61-year-old male with past medical history of hypertension and chronic neck and back pain on Percocet who was admitted to the psychiatric unit as a transfer from [facility] under [place] act due to suicide attempt by overdosing. Patient was seen as a consultation for extremely elevated blood pressure of 213/104 while under the psychiatric service. Patient was subsequently discharged from psychiatric service and will now be admitted under hospitalist service for observation of accelerated hypertension. Patient reports that yesterday after having an argument with his landlord he became very upset and aggravated in a short time later and dizziness, shaking and weakness. Patient reports he woke up a short while later and was unable to remember how to use his cell phone. He then began taking [id number] doses of Lyrica due to the fact that he forgot that he already taken the previous dose. He denies any suicide attempt. Patient is complaining of severe neck and back pain at this time. He also reports dysuria. He also reports episodes of diarrhea occurring after every meal that began when he was hospitalized over at [facility] and from his historical account it sounds as if he was tested for C. difficile and was found negative. He denies any fever, chills, nausea or vomiting. He normally takes clonidine 3 times a day but has not had a dose of that medication since he was admitted to this hospital. CBC/BMP: 01/07/17 0743 01/07/17 0743 Significant Findings Laboratory Tests Test 01/07/17 07:43 Red Blood Count 4.47 MIL/MM3 (4.50-5.90) Neutrophils (%) (Auto) 71.0 % (16.0-70.0) Monocytes (%) (Auto) 10.2 % (0.0-8.0) Monocytes # (Auto) 1.1 TH/MM3 (0-0.9) Potassium Level 3.4 MEQ/L (3.5-5.1) Estimat Glomerular Filtration 68 ML/MIN (>89) Rate PE at Discharge GENERAL: Alert, oriented 3, NAD. SKIN: Warm and dry. HEAD: Normocephalic. EYES: No scleral icterus. No injection or drainage. NECK: Supple, trachea midline. No JVD or lymphadenopathy. CARDIOVASCULAR: Regular rate and rhythm without murmurs, gallops, or rubs. RESPIRATORY: Breath sounds equal bilaterally. No accessory muscle use. GASTROINTESTINAL: Abdomen soft, non-tender, nondistended. MUSCULOSKELETAL: No cyanosis, or edema. BACK: Nontender without obvious deformity. No CVA tenderness. Pt update on day of discharge Patient is currently doing well. Denies any suicidal or homicidal ideations. He does not have any place to go to. Hospital Course 61-year-old male with past medical history of hypertension and chronic neck and back pain on Percocet who was admitted to the psychiatric unit as a transfer from [facility] under [place] act due to suicide attempt by overdosing. Patient was subsequently discharged from psychiatric service and will be admitted under hospitalist service for observation of accelerated hypertension. Accelerated hypertension Continue home medications amlodipine 10 mg, losartan 100 mg, metoprolol succinate 50 mg all daily. Patient takes clonidine 0.3 mg by mouth 3 times a day. We'll continue 0.2 mg clonidine by mouth 3 times a day for now. If BP remains high, we will increase to Clonidine 0.3mg TID. Chronic back pain - continue Percocet on discharge Insomnia - trazodone 100 mg daily at bedtime Adjustment disorder with depressed mood Patient was evaluated by psychiatry service. Patient was discharged from psychiatric service on 01/06/2017. Discussed with patient's [id number] at length. She is concerned about the safety of the patient if his discharge from the hospital. We subsequently consulted psychiatry service again and Discuss with Psychiatry attending who agrees to admit patient to in-patient psychiatry unit. Will discharge patient to psychiatry unit. Pt Condition on Discharge: Good Discharge Disposition: Disc to Psych Care Fac Discharge Time: > 30 minutes Discharge Instructions DIET: Follow Instructions for: Heart Healthy Diet Activities you can perform: Regular-No Restrictions New Medications: Baclofen (Baclofen) 10 Mg Tab 10 MG PO Q8HR muscle spasm #30 TAB Clonidine (Catapres) 0.2 Mg Tab 0.2 MG PO TID Blood Pressure Management #60 TAB Trazodone (Trazodone) 50 Mg Tab 100 MG PO HS Insomnia #30 TAB Continued Medications: Amlodipine (Amlodipine) 10 Mg Tab 10 MG PO DAILY Blood Pressure Management #30 Ref 0 TAB Cetirizine (Zyrtec Allergy) 10 Mg Cap 10 MG PO DAILY Allergies Ref 0 CAP Dicyclomine (Bentyl) 20 Mg Tab 20 MG PO QID Bowel Management Ref 0 TAB Losartan (Losartan) 100 Mg Tab 100 MG PO DAILY Blood Pressure Management #30 Ref 0 TAB Metoprolol Succinate ER 24 HR (Metoprolol Succinate ER 24 HR) 50 Mg Tab 50 MG PO DAILY #30 Ref 0 TAB Mometasone Nasal [place] (Nasonex Nasal [place]) 50 Mcg/Act Naspr 2 SPRAY EACH NARE DAILY Allergy Management #1 Ref 0 BOTTLE Oxycodone-Acetaminophen (Oxycodone-Acetaminophen) 10-325 mg Tab 1 TAB PO Q8HR Pain Management Ref 0 TAB Pregabalin (Lyrica) 75 Mg Cap 75 MG PO BID #60 Ref 0 CAP Discontinued Medications: Baclofen (Baclofen) 20 Mg Tab 20 MG PO Q6HR Muscle Spasm Ref 0 TAB Clonidine (Clonidine) 0.3 Mg Tab 0.3 MG PO TID Blood Pressure Management #60 Ref 0 TAB Ibuprofen (Ibuprofen) 800 Mg Tab 800 MG PO Q8H PRN Pain/Inflammation #60 Ref 0 TAB Mo Chamorro DO January 09, 2017 1:25 pm
[2017-01-09 16:00] VITALS: BP 150/88; PULSE 60; RESP 16; TEMP 97.9; O2SAT 96
[2017-01-09] MEDS ORDERED: LOSARTAN 50 MG TAB PO SCH (17:00)
== END 2017-01-09 16:25 ==
LOC: N04A 18:40
PROVIDERS: ADMIT Hospitalist; ATTEND Hospitalist
DX: I10 Essential (primary) hypertension (principal); G89.29 Other chronic pain; M54.2 Cervicalgia; M54.9 Dorsalgia, unspecified; R30.0 Dysuria; R19.7 Diarrhea, unspecified; F43.21 Adjustment disorder with depressed mood; G47.00 Insomnia, unspecified; F17.200 Nicotine dependence, unspecified, uncomplicated; Z88.8 Allergy status to other drugs, medicaments and biological substances; Z91.5 Personal history of self-harm
CPT/HCPCS: 80048; 81001; 85025; 87493; G0378

== ENCOUNTER 2017-01-09 16:43 | Inpatient (IN) | payer MEDICAID, OTHER ==
[~2017-01-09] VITALS: Ht 182.9 cm; Wt 87.4 kg
[~2017-01-09 16:43] MED LIST: AMLO10TA2 PO; BACL10TA PO; BACL20TA PO; BENT20TA PO; CLON.2 PO; CLON0.3T PO; IBUP800T23 PO; LOSA100T PO; LYRI75CA PO; METO50TA11 PO; MOME17I EACH NARE; OXYC1TAB36 PO; TRAZ50TA12 PO; ZYRT10CA PO
[2017-01-09] MEDS: NICOTINE 21 MG/24 HR PATCH T-DERMAL SCH (17:00)
[2017-01-09] MEDS ORDERED: diphenhydrAMINE HCL 50 MG CAP - HS PRN PO (17:15)
[2017-01-09] MEDS ORDERED: BENZTROPINE MESYLATE 2 MG/2 ML VIAL IM PRN (17:15)
[2017-01-09] MEDS ORDERED: ACETAMINOPHEN 325 MG TAB PO PRN (17:15)
[2017-01-09] MEDS ORDERED: LORazepam 1 MG TAB PO PRN (17:15)
[2017-01-09] MEDS ORDERED: LORazepam 2 MG/ML VIAL IM PRN (17:15)
[2017-01-09] MEDS ORDERED: ALUMINUM/MAGNESIUM/SIMETH 30 ML CUP PO PRN (17:15)
[2017-01-09] MEDS ORDERED: BENZTROPINE MESYLATE 1 MG TAB PO PRN (17:15)
[2017-01-09] MEDS ORDERED: MAGNESIUM HYDROXIDE SUSP 30 ML CUP PO PRN (17:15)
[2017-01-09 17:27] VITALS: BP 150/69; PULSE 69; RESP 18; TEMP 97
[2017-01-09] MEDS ORDERED: HYDROCHLOROTHIAZIDE 25 MG TAB PO ONE (17:30)
--- NOTE | 2017-01-09 18:47 | PD.CONS ---
HPI Service [facility] Hospitalists Consult Requested By Reason for Consult HTN, Back Pain Primary Care Physician Unknown Diagnoses: (1) Chronic back pain (2) Accelerated hypertension (3) Adjustment disorder with depressed mood History of Present Illness Mr. Severino is a 61 year old male. He is admitted to psych with depression and adjustment disorder. He has HTN and chronic back pain. Recent adjustments in BP treatments had been made, but full control is not present yet. Tonight he has back pain as a complaint. No other complaints. Review of Systems Constitutional: DENIES: Fever, Chills Eyes: DENIES: Blurred vision, Diplopia Ears, nose, mouth, throat: DENIES: Hearing loss, Vertigo Respiratory: DENIES: Cough, Wheezing, Shortness of breath Cardiovascular: DENIES: Chest pain, Palpitations Gastrointestinal: DENIES: Abdominal pain, Black stools, Bloody stools Musculoskeletal: COMPLAINS OF: Joint pain, Back pain Integumentary: DENIES: Abnormal pigmentation Hematologic/lymphatic: DENIES: Bruising Immunologic/allergic: DENIES: Eczema Neurologic: DENIES: Abnormal gait, Headache Psychiatric: COMPLAINS OF: Depression, DENIES: Anxiety Past Family Social History Allergies: Coded Allergies: Nonsteroidal Anti-Inflammatory Agts (Verified Allergy, Unknown, 01/05/17) Toradol (Verified Allergy, Unknown, 01/05/17) Past Medical History HTN Chronic back pain Chronic neck pain Hx of left foot fracture Hx of right ankle fracture Past Surgical History none Reported Medications Reported Meds & Active Scripts Active Trazodone (Trazodone HCl) 50 Mg Tab 100 Mg PO HS Catapres (Clonidine) 0.2 Mg Tab 0.2 Mg PO TID Baclofen 10 Mg Tab 10 Mg PO Q8HR Reported Nasonex Nasal [place] (Mometasone Furoate) 50 Mcg/Act Naspr 2 [place] EACH NARE DAILY Oxycodone-Acetaminophen 10-325 mg Tab 1 Tab PO Q8HR Zyrtec Allergy (Cetirizine HCl) 10 Mg Cap 10 Mg PO DAILY Bentyl (Dicyclomine HCl) 20 Mg Tab 20 Mg PO QID Lyrica (Pregabalin) 75 Mg Cap 75 Mg PO BID Losartan (Losartan Potassium) 100 Mg Tab 100 Mg PO DAILY Amlodipine (Amlodipine Besylate) 10 Mg Tab 10 Mg PO DAILY Metoprolol Succinate ER 24 HR (Metoprolol Succinate) 50 Mg Tab 50 Mg PO DAILY Family History lupus in mother depression/suicide in father Social History 1/2ppd smoking no drug abuse no alcohol use Physical Exam Vital Signs Vital Signs Date Time Temp Pulse Resp B/P Pulse Ox O2 Delivery O2 Flow Rate FiO2 01/09/17 17:27 97.0 69 18 150/69 Physical Exam GENERAL: NAD, A&Ox3 SKIN: Warm and dry. HEAD: Normocephalic. EYES: No scleral icterus. No injection or drainage. NECK: Supple, trachea midline. No JVD or lymphadenopathy. CARDIOVASCULAR: Regular rate and rhythm without murmurs, gallops, or rubs. RESPIRATORY: Breath sounds equal bilaterally. No accessory muscle use. GASTROINTESTINAL: Abdomen soft, non-tender, nondistended. MUSCULOSKELETAL: No cyanosis, or edema. Assessment and Plan Problem List: (1) Adjustment disorder with depressed mood ICD Code: F43.21 Status: Acute (2) Accelerated hypertension ICD Code: I10 Status: Acute (3) Chronic back pain ICD Code: M54.9 Status: Acute Assessment and Plan HTN Not yet controlled HCTZ added for 25mg daily Follow BP Chronic Back Pain Percocet resumed at home dosings Depression Continue management per psychiatry care Dorian Singh MD January 09, 2017 6:47 pm
[2017-01-09] MEDS: REMOVE OLD NICOTINE PATCH T-DERMAL SCH (21:00)
[2017-01-09] MEDS: cloNIDine HCL 0.2 MG TAB PO SCH (22:21)
[2017-01-09] MEDS: oxyCODONE/ACETAMINOPHEN 10 MG/325 MG TAB PO PRN (22:21)
[2017-01-09] MEDS: DICYCLOMINE HCL 20 MG TAB PO SCH ×2 (22:22→22:24)
[2017-01-09] MEDS: traZODone HCL 100 MG TAB PO SCH (22:22)
[2017-01-09] MEDS: PREGABALIN 75 MG CAP PO SCH (22:22)
[2017-01-10] MEDS: oxyCODONE/ACETAMINOPHEN 10 MG/325 MG TAB PO PRN ×4 (05:52→23:13)
[2017-01-10] MEDS: cloNIDine HCL 0.2 MG TAB PO SCH ×3 (05:53→20:24)
[2017-01-10 05:55] VITALS: BP 122/83; PULSE 66; RESP 16; TEMP 97.1; O2SAT 100
[2017-01-10] MEDS ORDERED: HYDROCHLOROTHIAZIDE 25 MG TAB PO SCH (09:00)
[2017-01-10] MEDS ORDERED: METOPROLOL SUCCINATE 50 MG EXTENDED RELEASE TAB PO SCH ×2 (09:00→21:00)
[2017-01-10] MEDS: DICYCLOMINE HCL 20 MG TAB PO SCH ×4 (09:07→20:40)
[2017-01-10] MEDS: LOSARTAN 50 MG TAB PO SCH (09:07)
[2017-01-10] MEDS: PREGABALIN 75 MG CAP PO SCH ×2 (09:07→20:40)
[2017-01-10] MEDS: NICOTINE 21 MG/24 HR PATCH T-DERMAL SCH (09:10)
[2017-01-10 09:27] LABS: ANION GAP 8 MEQ/L (5-15); BICARBONATE 30.4 MEQ/L (21.0-32.0); BLOOD UREA NITROGEN 22 MG/DL (7-18); CHLORIDE 98 MEQ/L (98-107); GLOMERULAR FILTRATION RATE 52 ML/MIN (>89); LDL CHOLESTEROL 77 MG/DL (0-99); POTASSIUM 3.6 MEQ/L (3.5-5.1); SODIUM (NA) 136 MEQ/L (136-145)
[2017-01-10] MEDS: BACLOFEN 10 MG TAB PO PRN ×2 (09:53→20:42)
[2017-01-10] MEDS ORDERED: INFLUENZA VIRUS VACCINE (QUADRIVALENT) 0.5 ML SYR IM ONE (10:00)
[2017-01-10] MEDS ORDERED: PNEUMOCOCCAL POLYVALENT INJ 25 MCG/0.5 ML SYR IM ONE (10:00)
[2017-01-10 11:29] LABS: HEMOGLOBIN A1a 0.9 %; HEMOGLOBIN A1b 1.4 %; HEMOGLOBIN Ao 86.5 %; HEMOGLOBIN P3 3.5 %
--- NOTE | 2017-01-10 13:02 | HHI.HP ---
Provisional Diagnosis Admission Date January 09, 2017 at 16:43 [place]. Adjustment disorder with mixed disturbance of emotion and conduct. Certification of Person's Competence To Provide Express and Informed Consent I have personally examined Matthew Fox , a person being served at [facility] on, January 10, 2017 12:56. Express and informed consent means consent voluntarily given in writing, by a competent person, after sufficient explanation and disclosure of the subject matter involved to enable the person to make a knowing and willful decision without any element of force, fraud, deceit, duress, or other form of constraint or coercion. This person is 18 years of age or older, is not now known to be incompetent to consent to treatment with a guardian advocate, and does not have a health care surrogate or proxy currently making medical treatment decisions. I have found this person to be one of the following: [X] Competent to provide express and informed consent, as defined above, for voluntary admission to this facility and is competent to provide express and informed consent for treatment. He/she has the consistent capacity to make well reasoned, willful, and knowing decisions concerning his or her medical or mental health treatment. The person fully and consistently understands the purpose of the admission for examination/placement and is fully capable of personally exercising all rights [place] Incompetent to provide express and informed consent to voluntary admission, and this is incompetent to provide express and informed consent to treatment. The person must be transferred to involuntary status and a petition for a guardian advocate filed with the Circuit Court. [] Refusing to provide express and informed consent to voluntary admission but is competent to provide express and informed consent for treatment. The person must be discharged or transferred to involuntary status. Form shall be completed within 24 hours of a person's arrival at the receiving facility and filed in the clinical record of each person: 1. Admitted on a voluntary basis 2. Permitted to provide express and informed consent to his/her own treatment 3. Allowed to transfer from involuntary to voluntary status 4. Prior to permitting a person to consent to his or her own treatment after having been previously found incompetent to consent to treatment. History of Present Illness Capacity: Has Capacity HPI This is a 61-year-old male who was admitted after an overdose on flaca. The overdose took place in December of this year. The patient is currently homeless although states he lives in [place]. He is requesting Percocet for his back pain. He also requests Benadryl to help with anxiety, skin itchiness and sleep. He describes symptoms of depression including depressed mood, anhedonia , suicidal ideation, loss of energy, loss of self-esteem, insomnia, anxiety, etc. These symptoms have been going on the last several weeks. Review of Systems ROS Limitations: Poor Historian Except as stated in HPI: all other systems reviewed are Neg Past Psych History Psychological trauma history Patient indicates he has been treated for mood disorder in the past. This was primarily done on an outpatient basis by his general practitioner, Dr. Preston Violence risk - others (6 mos) Minimal Violence risk - self (6 mos) Moderate Substance Abuse History Drugs/Alcohol past 12 months Denied Past Family Social History Coded Allergies: Nonsteroidal Anti-Inflammatory Agts (Verified Allergy, Unknown, 01/05/17) Toradol (Verified Allergy, Unknown, 01/05/17) Active Scripts Trazodone 50 Mg [id number] Mg PO HS #30 TAB Prov:Mo Chamorro DO 01/09/17 Clonidine (Catapres)0.2 Mg Tab0.2 Mg PO TID #60 TAB Prov:Mo Chamorro DO 01/09/17 Baclofen 10 Mg Tab10 Mg PO Q8HR #30 TAB Prov:Mo Chamorro DO 01/09/17 Reported Medications Mometasone Nasal [place] (Nasonex Nasal [place])50 Mcg/Act Naspr2 [place] EACH NARE DAILY #1 BOTTLE Ref 0 01/08/17 Oxycodone-Acetaminophen 10-325 mg Tab1 Tab PO Q8HR Ref 0 01/08/17 Cetirizine (Zyrtec Allergy)10 Mg Cap10 Mg PO DAILY Ref 0 01/08/17 Dicyclomine (Bentyl)20 Mg Tab20 Mg PO QID Ref 0 01/08/17 Pregabalin (Lyrica)75 Mg Cap75 Mg PO BID #60 CAP Ref 0 01/08/17 Losartan 100 Mg Phh015 Mg PO DAILY #30 TAB Ref 0 01/08/17 Amlodipine 10 Mg Tab10 Mg PO DAILY #30 TAB Ref 0 01/08/17 Metoprolol Succinate ER 24 HR 50 Mg Tab50 Mg PO DAILY #30 TAB Ref 0 5/6/17 Discontinued Reported Medications Ibuprofen 800 Mg [id number] Mg PO Q8H PRN (Pain/Inflammation) #60 TAB Ref 0 01/08/17 Baclofen 20 Mg Tab20 Mg PO Q6HR Ref 0 01/08/17 Clonidine 0.3 Mg Tab0.3 Mg PO TID #60 TAB Ref 0 01/08/17 Current Medications Medications (Trade) Dose Ordered Sig/Ivan Route Start Time Stop Time Status Last Admin (Ativan) 1 mg Q6H PRN PO 01/09/17 17:15 (Ativan Inj) 1 mg Q6H PRN IM 01/09/17 17:15 (Cogentin) 1 mg Q12H PRN PO 01/09/17 17:15 (Cogentin Inj) 1 mg Q12H PRN IM 01/09/17 17:15 (Benadryl) 50 mg HS PRN PO 01/09/17 17:15 (Tylenol) 650 mg Q4H PRN PO 01/09/17 17:15 (Milk Of Magnesia Liq) 30 ml DAILY PRN PO 01/09/17 17:15 (Mag-Al Plus Susp Liq) 30 ml Q6H PRN PO 01/09/17 17:15 (Habitrol 21 Mg Patch.24 Hr) 1 patch DAILY T-DERMAL 01/09/17 17:00 01/10/17 09:10 Miscellaneous Information 1 HS T-DERMAL 01/09/17 21:00 (Catapres) 0.2 mg Q8HR PO 01/09/17 22:00 01/10/17 05:53 (Desyrel) 100 mg HS PO 01/09/17 21:00 01/09/17 22:22 (Norvasc) 10 mg DAILY PO 01/10/17 09:00 01/10/17 09:07 (Bentyl) 20 mg QID PO 01/09/17 18:00 01/10/17 09:07 (Cozaar) 100 mg DAILY PO 01/10/17 09:00 01/10/17 09:07 (Lyrica) 75 mg BID PO 01/09/17 21:00 01/10/17 09:07 (Lioresal) 10 mg Q8H PRN PO 01/09/17 17:15 01/10/17 09:53 (Hydrodiuril) 25 mg DAILY PO 01/10/17 09:00 01/10/17 09:07 (Percocet 10-325 Mg) 1 tab Q6H PRN PO 01/09/17 18:45 01/10/17 11:29 (Toprol Xl) 50 mg HS PO 01/10/17 21:00 Family History Positive for mood disorders Social History Not . Has no children. Currently homeless although was in some type of housing in [facility], living with his housing installer. Now reports he is homeless. Patient's Strengths (min. 2) Verbal and has access to healthcare. Physical Exam GENERAL: SKIN: Warm and dry. HEAD: Normocephalic. EYES: No scleral icterus. No injection or drainage. NECK: Supple, trachea midline. No JVD or lymphadenopathy. CARDIOVASCULAR: Regular rate and rhythm without murmurs, gallops, or rubs. RESPIRATORY: Breath sounds equal bilaterally. No accessory muscle use. GASTROINTESTINAL: Abdomen soft, non-tender, nondistended. MUSCULOSKELETAL: No cyanosis, or edema. BACK: Nontender without obvious deformity. No CVA tenderness. Vital Signs Vital Signs Date Time Temp Pulse Resp B/P Pulse Ox O2 Delivery O2 Flow Rate FiO2 01/10/17 05:55 97.1 66 16 122/83 100 Mental Status Examination Speech: Unremarkable Orientation: x3 Memory: Unremarkable Thought Process: Organized, Goal Directed Thought Content: Unremarkable Hallucination Type: None Attention and Concentration: Good Suicidal Ideation: Yes Previous Suicide Attempts: Yes Homicidal Ideation: No Previous Homicide Attempts: No Insight: Fair Judgment: WNL Affect: Good Mood: Appropriate Motor Activity: Normal gait Assessment & Plan Problem List: (1) Adjustment disorder with mixed disturbance of emotions and conduct ICD Code: F43.25 Assessment & Plan Estimated LOS: 3 days patient to be evaluated for mood stability and suicidality. workers compensation claims analyst to discuss placement options. This physician discussed patient's current behavior with nurse. Patient appears to be manipulative but obviously can overdose on medication and demonstrate his lethality Donta Ingram MD January 10, 2017 13:02
--- NOTE | 2017-01-10 14:22 | HHI.PR ---
Subjective Remarks Follow-up visit hypertension, chronic back pain, itching. Patient seen and examined today. Discuss BP management. Discuss results of labs including increased creatinine. Patient complains of itching all over and requesting for Benadryl. States that itching has been on and off and is not new states he's been taking Benadryl at home. Pain is otherwise manageable with pain medications. Otherwise, denies SOB/ dyspnea. Denies chest pain, palpitations , headaches, dizziness. Denies fevers, chills, n/v/d. Objective Vitals Vital Signs Date Time Temp Pulse Resp B/P Pulse Ox O2 Delivery O2 Flow Rate FiO2 01/10/17 05:55 97.1 66 16 122/83 100 01/09/17 17:27 97.0 69 18 150/69 Result Diagram: 01/10/17 0832 Objective Remarks GENERAL: This is a well-nourished, well-developed patient, in no apparent distress. SKIN: Warm and dry HEENT: Normocephalic. Pupils equal round and reactive. Nose without bleeding. Airway patent. NECK: Trachea midline. No JVD. Supple. CARDIOVASCULAR: Regular rate and rhythm systolic 3/6 murmurs, gallops, or rubs. RESPIRATORY: Clear to auscultation. Breath sounds equal bilaterally. No wheezes , rales, or rhonchi. GASTROINTESTINAL: Abdomen soft, non-tender, nondistended. Bowel Sounds normoactive x4. : Voiding without difficulty. MUSCULOSKELETAL: Extremities without clubbing, cyanosis, or edema. NEUROLOGICAL: Awake and alert. Oriented to time, place, person. No focal neuro deficit. Moves all extremities. Normal speech. A/P Problem List: (1) Adjustment disorder with depressed mood ICD Code: F43.21 Status: Acute (2) Accelerated hypertension ICD Code: I10 Status: Acute (3) Chronic back pain ICD Code: M54.9 Status: Acute Assessment and Plan Patient is a 61-year-old old male with primary medical history of hypertension, chronic back pain who came into the hospital for overdose of Lyrica. He is now admitted to inpatient psychiatric unit for further evaluation. Consulted for medical management of HTN, chronic pain. The patient is currently homeless although states he lives in [place]. Depression, suicidal ideation - managed by psychiatry team HTN, accelerated uncontrolled - Metoprolol XL 50 mg daily at bedtime, amlodipine 10 mg daily, losartan 100 mg daily, clonidine 0.2 mg every 8 hours - Hydrochlorothiazide 25 mg, will DC for now secondary to increased creatinine 1.39 - Monitor BP trend. We'll increase metoprolol or add hydralazine if BP continues to be uncontrolled. Today's BP within normal 122/83 Chronic back pain - On Percocet 10/325 mg every 6 hours when necessary - Baclofen 10 mg every 8 hours when necessary - Lyrica 75 mg twice a day Acute kidney injury, elevated creatinine - Possibly secondary to overdose of lyrica. Unknown baseline creatinine. - Encourage by mouth fluids - Avoid nephrotoxins - Monitor creatinine Urticaria, pruritus - Benadryl 25 mg every 6 hours when necessary DVT prop ambulatory Discussed with patient, nursing, and Filomena Murillo January 10, 2017 14:22
[2017-01-10] MEDS: diphenhydrAMINE HCL 25 MG CAP PO PRN ×2 (14:55→20:47)
--- NOTE | 2017-01-10 16:34 | HHI.PYPN ---
Subjective Remarks Remains depressed, socially reclusive, and demonstrates little energy or motivation. Review of Systems Except as stated in HPI: all other systems reviewed are Neg Objective Alert: Yes [place]: Person, Place, Date, Situation Mood: Depressed Affect: Restricted Memory Intact: Immediate, Recent, Remote Hallucinations: Other Delusions: No Delusion Type: Other Suicidal: Ideation Homicidal: Ideation Insight/Judgment Impaired Labs Test 01/10/17 08:32 Sodium Level 136 MEQ/L Potassium Level 3.6 MEQ/L Chloride Level 98 MEQ/L Carbon Dioxide Level 30.4 MEQ/L Anion Gap 8 MEQ/L Blood Urea Nitrogen 22 MG/DL Creatinine 1.39 MG/DL Estimat Glomerular Filtration 52 ML/MIN Rate Random Glucose 119 MG/DL Hemoglobin A1c 5.3 % Calcium Level 8.7 MG/DL Triglycerides Level 164 MG/DL Cholesterol Level 166 MG/DL LDL Cholesterol 77 MG/DL HDL Cholesterol 56.0 MG/DL Cholesterol/HDL Ratio 2.96 RATIO Vitals/IOs Vital Signs Date Time Temp Pulse Resp B/P Pulse Ox O2 Delivery O2 Flow Rate FiO2 01/10/17 05:55 97.1 66 16 122/83 100 Assessment & Plan Problem List: (1) Adjustment disorder with mixed disturbance of emotions and conduct ICD Code: F43.25 Assessment & Plan Estimated LOS: 3 days continue to treat with antidepressant therapy. Justification for Cont. Inpt. Suicidal thinking. Donta Ingram MD January 10, 2017 16:34
[2017-01-10 20:00] VITALS: BP 105/66; PULSE 60; RESP 17; TEMP 98; O2SAT 94
[2017-01-10] MEDS: REMOVE OLD NICOTINE PATCH T-DERMAL SCH ×2 (20:24→20:50)
[2017-01-10] MEDS: traZODone HCL 100 MG TAB PO SCH (20:40)
[2017-01-11] MEDS: diphenhydrAMINE HCL 25 MG CAP PO PRN ×3 (03:02→16:20)
[2017-01-11] MEDS: cloNIDine HCL 0.2 MG TAB PO SCH ×2 (05:25→14:06)
[2017-01-11 05:29] VITALS: BP 108/69; PULSE 68; RESP 18; TEMP 98; O2SAT 97
[2017-01-11] MEDS: oxyCODONE/ACETAMINOPHEN 10 MG/325 MG TAB PO PRN ×2 (08:11→14:05)
[2017-01-11] MEDS: NICOTINE 21 MG/24 HR PATCH T-DERMAL SCH (08:13)
[2017-01-11] MEDS: PREGABALIN 75 MG CAP PO SCH (08:13)
[2017-01-11] MEDS: LOSARTAN 50 MG TAB PO SCH (08:13)
[2017-01-11] MEDS: DICYCLOMINE HCL 20 MG TAB PO SCH ×2 (08:14→14:05)
[2017-01-11] MEDS ORDERED: LYRI75CA PO (11:18)
[2017-01-11] MEDS ORDERED: BENT20TA PO (11:18)
[2017-01-11] MEDS ORDERED: COZA100T PO (11:18)
[2017-01-11] MEDS ORDERED: CLON.2 PO (11:18)
[2017-01-11] MEDS ORDERED: TRAZ100T4 PO (11:18)
--- NOTE | 2017-01-11 11:26 | HHI.DS ---
Psychiatry Discharge Summary Inpatient Psychiatric care?: Yes Advance Directive: No Reason Not Provided: Due to Patient Condition Mental Health AdvanceDirective: No Health Care Proxy: No Admission Admission Date January 09, 2017 at 16:43 Admission Diagnosis: (1) Adjustment disorder with mixed disturbance of emotions and conduct ICD Code: F43.25 Brief History This is a 61-year-old male who was admitted after an overdose on flaca. The overdose took place in December of this year. The patient is currently homeless although states he lives in [place]. He is requesting Percocet for his back pain. He also requests Benadryl to help with anxiety, skin itchiness and sleep. He describes symptoms of depression including depressed mood, anhedonia , suicidal ideation, loss of energy, loss of self-esteem, insomnia, anxiety, etc. These symptoms have been going on the last several weeks. Tobacco Use In Past 30 Days: 5 or More Cigarettes/Day Alcohol Use: Monthly or Less Hospital Course Patient's hospital course was uneventful, though nurses did notice patient was somewhat focused on his pain medications drug-seeking and punctuality with this prescribed medications and his when necessary medications. Patient seen by me today. Denies suicidality homicidality voices or visions. States he does have domicile with family. Family will be assisting him. He also has a primary care physician locally who is prescribing his medication. At this time patient no longer meets criteria for acute inpatient psychiatric hospitalization. Be discharged to himself with Rx 2 weeks except no opiates will be given. He may follow-up with patient medication also with his PCP Results Blood Pressure 108 / 69 Vital Signs Date Time Temp Pulse Resp B/P Pulse Ox O2 Delivery O2 Flow Rate FiO2 01/11/17 05:29 98.0 68 18 108/69 97 Laboratory Tests Test 01/10/17 08:32 Blood Urea Nitrogen 22 MG/DL (7-18) Creatinine 1.39 MG/DL (0.60-1.30) Estimat Glomerular Filtration 52 ML/MIN (>89) Rate Random Glucose 119 MG/DL (74-106) Triglycerides Level 164 MG/DL (42-150) Laboratory Results Test 01/10/17 08:32 Hemoglobin A1c 5.3 % (4.3-6.0) Triglycerides Level 164 MG/DL (42-150) Cholesterol Level 166 MG/DL (120-200) LDL Cholesterol 77 MG/DL (0-99) HDL Cholesterol 56.0 MG/DL (40.0-60.0) Summary of Procedures None done Pending results at discharge: No Medications # of Antipsychotic meds at D/C: 0 Approp Antipsych med options 1 - Minimum of three failed multiple trials of monotherapy. 2 - Documented plan to taper to monotherapy due to previous use of multiple meds OR cross-taper in progress at D/C. 3 - Documentation of augmentation of Clozapine. 4 - Justification other than those listed in allowable values 1-3, document here : Discharge Discharge Date: January 11, 2017 Discharge Diagnosis: (1) Adjustment disorder with mixed disturbance of emotions and conduct Diagnosis: Principal ICD Code: F43.25 Mental Status Exam at Disch Alert oriented white male somewhat needy in this attitude, he is calm cooperative and oriented. Though somewhat disheveled, he is normal active, mood shows mild dysphoria decreased range of intensity of his affect, speech rate and rhythm are slightly decreased, no formal thought disorders, no auditory or visual hallucinations, no delusions, insight and judgment is poor to fair, cognition grossly intact Pt Condition on Discharge: Stable Discharge Disposition: Discharge Home Discharge Instructions Diet Instructions: Heart Healthy Diet Activities you can perform: Regular-No Restrictions Scheduled Appointment: follow-up PCP Discharge Time > 30 minutes Discharge/Advance Care Plan Health Problems: (1) Adjustment disorder with mixed disturbance of emotions and conduct Goals to promote your health * To prevent worsening of your condition and complications * To maintain your health at the optimal level Directions to meet your goals Take your medications as prescribed Follow your dietary instruction Follow activity as directed Keep your appointments as scheduled Take your immunizations and boosters as scheduled If your symptoms worsen call your PCP, if no PCP go to Urgent Care Center or Emergency Room For 28/03 questions related to your inpatient stay or results of tests pending at discharge, please contact Dr. Wiley Conner at Smoking is Dangerous to Your Health. Avoid second hand smoking Wiley Conner MD January 11, 2017 11:26
== END 2017-01-11 17:10 | disposition home or self-care (01) | DRG 882 ==
LOC: H260 16:43
PROVIDERS: ADMIT Psychiatry & Neurology Psychiatry; ATTEND Psychiatry & Neurology Psychiatry
DX: F43.25 Adjustment disorder with mixed disturbance of emotions and conduct (principal); N17.9 Acute kidney failure, unspecified; R45.851 Suicidal ideations; I10 Essential (primary) hypertension; F43.21 Adjustment disorder with depressed mood; Z76.5 Malingerer [conscious simulation]; Z59.0 Homelessness; G89.29 Other chronic pain; L50.9 Urticaria, unspecified; F41.9 Anxiety disorder, unspecified; Z79.899 Other long term (current) drug therapy
CPT/HCPCS: 80048; 80061; 83036